=== PATIENT | female | born 1980 | race African-American/Black ===

== ENCOUNTER 2024-10-05 11:51 | Inpatient (IN) | payer MEDICAID, OTHER ==
[~2024-10-05] VITALS: Ht 160 cm; Wt 68.6 kg
--- NOTE | 2024-10-05 12:03 | ED.PDOC ---
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 Allergies: penicillins HPI: Poor Historian. Has not been taking her medicine for quite some time. Was drinking alcohol last night. Denies use of drugs. Denies . REVIEW OF SYSTEMS: CONSTITUTIONAL: Denies acute: fever, diaphoresis, chills, HEAD: Denies acute: photophobia Eyes: Denies acute: Double vision, vision loss, eye pain, eye discharge. EARS: Denies acute: tinnitus, hearing loss, ear discharge, ear pain, THROAT: Denies acute: sore throat, swelling, difficulty swallowing , pain with swallowing, change in voice. NECK: Denies acute: neck pain, neck swelling, stiff neck. HEART: Denies acute : chest pain, LUNGS: Denies acute: SOB, wheezing, cough, hemoptysis ABDOMEN: Denies acute: abdominal pain, Nausea, Vomiting, diarrhea, melena , hematemesis, hematochezia SKIN: Denies acute: rash, redness, lesions, itchiness. EXTREMITIES: Denies acute: calf pain, numbness, tingling, weakness, denies pain in extremity. Denies acute: Low back pain. Neuro: Denies acute: focal neurological deficit, motor or sensory focal neurological deficit, tremors, seizure like activity, confusion, dizziness, change in mental status, loss of bowel or bladder function, cauda equina like symptoms. : Denies acute: dysuria, hematuria, flank pain, increase in urinary frequency. PSYCH: Denies acute: hallucination, suicidal ideation, homicidal ideation. FEMALE: Denies acute: abnormal vaginal bleeding, foul odor, unusual discharge. PHYSICAL EXAM: General: ----mild----acute distress, awake and alert. Head: normocephalic, atraumatic. Neck: supple, trachea is midline, no swelling. Throat: Normal phonation. Eyes:, no erythema, no purulent discharge, no proptosis, no icterus. Heart: regular tachycardia, no significant murmur appreciated. Lungs: no apparent respiratory distress, Able to speak in full sentences. No wheezing, no rhonchi, no crackles. No stridors Clear to auscultation bilaterally. Abdomen: non tender to palpation, non distended, soft, no guarding, no rebound, + bowel sounds. Neuro: Awake, Alert, oriented to name, self, situation, follows commands GCS=15. Speech is normal. Skin: no petechia, no purpura, no cyanosis, non-pale, not jaundice. Lower extremities: --no - Pitting edema no deformity, no focal swelling, no calf TTP. Makes eye contact. moves all four extremities. Face: no apparent facial droop. ED COURSE: DISCLAIMER: This medical document was created using an electronic medical record system with voice recognition software and computerized dictation system. Although this document has been carefully reviewed, there might still be some phonetic and typographical errors. Occasional wrong-word or "sound-alike" substitutions may have occurred due to the inherent limitations of voice recognition software. These areas are purely typographical due to imperfections of the software programs and do not reflect any compromise in the patient's medical care. Please read the chart carefully and recognize, using context, where these substitutions have occurred. Time Seen by MD: 11:56 Reviewed Notes: Allergies Allergies: Coded Allergies: Penicillins (Verified Allergy, Unknown, 10/05/24) Information Source: Patient, Emergency Med Personnel Mode of Arrival: EMS Was a procedure done? Was a procedure done?: No CP Differential Dx Differential Diagnosis: A-fib, A-Flutter, Angina, Anxiety / Panic Attack, Atrial Dysrhythmia, Digoxin Toxicity, Electrolyte Disorder, Heart Failure, Hyperthyroidism, Hypoxia, MAT, PAC's, Pacemaker Malfunction, PSVT, Pulmonary Embolus, PVC's, Renal Failure, Sinus Tachycardia, Torsades De Pointes, V-Fib, V- Tach Differential Diagnosis: Other (DDX include renal disease, thyroid disease, electrolyte abnormality, increased salt intake, medications non-compliance, undiagnosed HTN, Hypertensive crisis, hypertensive urgency., drug toxicity.) X-Ray, Labs, Meds, VS Vital Signs Date Time Temp Pulse Resp B/P (MAP) Pulse Ox O2 Delivery O2 Flow Rate FiO2 10/05/24 14:10 88 154/99 10/05/24 12:41 119 12 99 Room Air* 0 21 10/05/24 12:38 119 12 171/122 (138) 99 10/05/24 12:31 119 171/122 10/05/24 11:56 137 10/05/24 11:54 98.7 121 20 186/141 (156) 98.7 Lab Test 10/05/24 14:04 10/05/24 13:27 10/05/24 12:37 Range/Units Urine Color Light-yellow Yellow Urine Clarity Clear Clear Urine pH 7.0 5.0-9.0 Urine Specific [place] 1.006 1.001-1.035 Urine Protein Negative Negative Urine Ketones Negative Negative Urine Blood Negative Negative /uL Urine Nitrite Negative Negative Urine Bilirubin Negative Negative Urine Urobilinogen Normal Negative mg/dL Urine Leukocyte Esterase Negative Negative /uL Urine RBC 1 0 - 4 /hpf Urine Microscopic WBC 2 0-5 /HPF Urine Squamous Epithelial Cells Few <5 /hpf Urine Bacteria Few H None Seen /hpf Urine Glucose Normal Normal mg/dL Urine Test Negative Negative Urine Opiates Screen Neg NEGATIVE Urine Fentanyl Screen Neg NEGATIVE Urine Barbiturates Screen Neg NEGATIVE Urine Phencyclidine Screen Neg NEGATIVE Urine Amphetamines Screen Neg NEGATIVE Urine Benzodiazepines Screen Neg NEGATIVE Urine Cocaine Screen Neg NEGATIVE Urine Cannabinoids Screen Pos NEGATIVE Troponin I High Sensitivity 5 < 3 L </=34 ng/L White Blood Count 4.1 L 4.4-10.8 10^3/uL Red Blood Count 5.76 H 4.0-5.20 10^6/uL Hemoglobin 15.1 12.2-16.2 g/dL Hematocrit 46.1 H 36.0-46.0 % Mean Corpuscular Volume 79.9 L 80.0-100.0 fL Mean Corpuscular Hemoglobin 26.2 L 28.0-32.0 pg Mean Corpuscular Hemoglobin Concent 32.8 32.0-36.0 g/dL Red Cell Distribution Width 13.1 11.8-14.3 % Platelet Count 238 140-450 10^3/uL Mean Platelet Volume 8.5 6.9-10.8 fL Neutrophils (%) (Auto) 61.6 37.0-80.0 % Lymphocytes (%) (Auto) 29.4 10.0-50.0 % Monocytes (%) (Auto) 6.9 0.0-12.0 % Eosinophils (%) (Auto) 1.3 0.0-7.0 % Basophils (%) (Auto) 0.8 0.0-2.0 % Neutrophils # (Auto) 2.5 1.6-8.6 10 ^3/uL Lymphocytes # (Auto) 1.2 0.4-5.4 10 ^3/uL Monocytes # (Auto) 0.3 0-1.3 10 ^3/uL Eosinophils # (Auto) 0.1 0-0.8 10 ^3/uL Basophils # (Auto) 0 0-0.2 10 ^3/uL Nucleated Red Blood Cells 0.1 % Sodium Level 139 136-145 mmol/L Potassium Level 3.5 3.5-5.1 mmol/L Chloride Level 104 98-107 mmol/L Carbon Dioxide Level 23 20-31 mmol/L Anion Gap 12 5-15 Blood Urea Nitrogen 7 L 9-23 mg/dL Creatinine 0.99 0.550-1.02 mg/dL Glomerular Filtration Rate Calc 73 >90 mL/min BUN/Creatinine Ratio 7.1 L 10.0-20.0 Serum Glucose 89 74-106 mg/dL Lactic Acid Level 2.2 *H 0.4-2.0 mmol/L Calcium Level 10.4 8.7-10.4 mg/dL Magnesium Level 1.9 1.6-2.6 mg/dL Total Bilirubin 0.7 0.2-1.0 mg/dL Aspartate Amino Transferase (AST) 20 13-40 U/L Alanine Aminotransferase (ALT) 16 7-40 U/L Alkaline Phosphatase 67 46-116 U/L B-Type Natriuretic Peptide 5.13 0-100 pg/mL Total Protein 8.8 H 5.7-8.2 g/dL Albumin 5.1 H 3.2-4.8 g/dL Thyroid Stimulating Hormone (TSH) 1.01 0.55-4.78 uIU/mL Plasma/Serum Blood Alcohol < 3.0 <10 mg/dL Current Medications Medications (Trade) Dose Ordered Sig/Joaquin Route Start Time Stop Time Status Last Admin Sodium Chloride 1,000 ml @ 1,000 mls/hr Q1H ONCE IV 10/05/24 12:00 10/05/24 12:59 DC 10/05/24 12:34 Metoprolol Tartrate (Lopressor) 5 mg ONCE ONCE IV 10/05/24 12:00 10/05/24 12:01 DC 10/05/24 12:31 Sodium Chloride 1,000 ml @ 1,000 mls/hr Q1H ONCE IV 10/05/24 14:00 10/05/24 14:59 DC 10/05/24 14:10 [place] [id number] Ph: [phone] DIAGNOSTIC IMAGING Diagnostic Imaging Report : [id number] Signed PATIENT: SETH MULLER ACCT: [id number] UNIT: [id number] : 1980 LOC: OVERFLOW ROOM / BED: [address] [place] [address] AGE / SEX: 44 / F ADM STATUS: ADM IN SERVICE 25 ORDERING PHYSICIAN: JOSE D CLEMENTE DNP PROCEDURE(s): HWOCT - HEAD WITHOUT CONTRAST REASON: acute headache ORDER NUMBER(s): [id number], ACCESSION NUMBER(s): [id number] CT brain without contrast CLINICAL INDICATION: acute headache FINDINGS: The study was performed in a multidetector scanner. This study performed taking axial images from the skull base up to the vertex. Both brain and bone windows are photographed. Dose lowering techniques have been used including automated exposure control and adjustment of mA and/or KV according to patient size. Normal and symmetrical shape and density of brain parenchyma above and below the tentorium is seen. There is no mass, midline shift or hydrocephalus. No intra/extra-axial collections demonstrated. There is no intracranial hemorrhage. The calvarium is intact. IMPRESSION: 1. Normal brain and skull. Computed Tomographic Radiation Dosimetry Report: Total CTDI vol = 54 mGy Total DLP = 752 mGy-cm All CT scans at this medical facility are performed using dose modulation techniques as appropriate to a performed exam including the following: Automated exposure control was utilized; adjustment of the MA and/or KvP according to patient size; and use of iterative reconstruction technique. ATED BY: YOUNG MARISCAL MD DICTATED DATE/TIME: 10/05/241500 SIGNED BY: YOUNG MARISCAL MD SIGNED DATE/TIME: 10/05/24 150 CC: [place] [id number] Ph: [phone] DIAGNOSTIC IMAGING Diagnostic Imaging Report : [id number] Signed PATIENT: SETH MULLER ACCT: [id number] UNIT: [id number] : 1980 LOC: OVERFLOW ROOM / BED: [address] [place] [address] AGE / SEX: 44 / F ADM STATUS: ADM IN SERVICE 1159 ORDERING PHYSICIAN: LUNA KAT DO PROCEDURE(s): CXRP - CHEST PORTABLE REASON: TACHY, HTN ORDER NUMBER(s): [id number], ACCESSION NUMBER(s): [id number] AP portable chest CLINICAL INDICATION: TACHY, HTN FINDINGS: Heart size is normal. No infiltrates or effusions. No bony thoracic abnormalities. IMPRESSION: 1. No acute cardiopulmonary pathology. ATED BY: YOUNG MARISCAL MD DICTATED DATE/TIME: 10/05/241453 SIGNED BY: YOUNG MARISCAL MD SIGNED DATE/TIME: 10/05/241453 CC: Time of 1ST Reevaluation: 18:49 Reevaluation 1ST: Improved Patient Education/Counseling: Diagnosis, Treatment Family Education/Counseling: No Family Present Comments MDM: patient presented with the above HPI.-tachycardia and hypertensive crisis-----workup was initiated. patient was found with the above mentioned diagnosis. the following medications were ordered: please refer to order lists of meds and tests obtained by myself Dr. Kat. Patient ED course and VS have been stabilized. Patient has been reassessed in the ED and remained in a stable condition. Pertinent incidental findings were discussed with the patient and/or family. Patient/family voices understanding and is agreeable with plan. Patient has been observed in the ED adequate length of time to insure improvement/stability. Escalation of care considered: Consideration of escalation to observation or admission Patient was given Lopressor which she was supposed to be on. Patient was given fluid hydration. Vital signs improved. Patient was ADMITTED to the medicine team for further evaluation and treatment of their presentation. Patient was found with slightly elevated D-dimer. The medicine team ordered the CTA angiogram of the chest. It is still pending. All the reports of any imaging studies that were ordered by myself were reviewed by myself. SEPSIS Sepsis Screen Physician Orders Air Conditioning Mechanic (10/05/24 ) Chest Portable (10/05/24 11:59) Electrocardigram (10/05/24 11:59) Electrocardigram (10/05/24 12:59) Electrocardigram (10/05/24 14:59) Vital Signs Date Time Temp Pulse Resp B/P (MAP) Pulse Ox O2 Delivery O2 Flow Rate FiO2 10/05/24 14:10 88 154/99 10/05/24 12:41 119 12 99 Room Air* 0 21 10/05/24 12:38 119 12 171/122 (138) 99 10/05/24 12:31 119 171/122 10/05/24 11:56 137 10/05/24 11:54 98.7 121 20 186/141 (156) 98.7 Laboratory Tests Test 10/05/24 12:37 Lactic Acid Level 2.2 mmol/L (0.4-2.0) *H White Blood Count 4.1 10^3/uL (4.4-10.8) L Medications Medications Dose Ordered Sig/Joaquin Route Start Time Stop Time Status Last Admin Dose Admin Metoprolol Tartrate 5 mg ONCE ONCE IV 10/05/24 12:00 10/05/24 12:01 DC 10/05/24 12:31 Sodium Chloride 1,000 ml @ 1,000 mls/hr Q1H ONCE IV 10/05/24 12:00 10/05/24 12:59 DC 10/05/24 12:34 Sodium Chloride 1,000 ml @ 1,000 mls/hr Q1H ONCE IV 10/05/24 14:00 10/05/24 14:59 DC 10/05/24 14:10 Departure 1 Departure Time of Disposition: 12:45 Impression: Primary Impression: Hypertensive crisis Additional Impressions: Sinus tachycardia Noncompliance with medication regimen Elevated d-dimer Disposition: ADMITTED INPATIENT Admit to: Tele Condition: Guarded Discharged With: Self Critical Care Note Critical Care Time?: Yes (45 min-critical care time only) Heart Score Heart Score: Heart Score Response (Comments) Value History Slightly Suspicious 0 EKG Repolarization Disturb 1 Age <45 0 Risk Factors 1 or 2 risk factors 1 Troponin Normal limit 0 Total 2 I personally scribed for LUNA KAT DO ([email or web address]) on 10/05/24 at 12:03. Electronically submitted by Shyanne El (Pyrolia). I personally scribed for LUNA KAT DO ([email or web address]) on 10/05/24 at 13:34. Electronically submitted by Shyanne El (Pyrolia). I personally scribed for LUNA KAT DO ([email or web address]) on 10/05/24 at 13:59. Electronically submitted by Shyanne El (Pyrolia). I personally scribed for LUNA KAT DO ([email or web address]) on 10/05/24 at 14:06. Electronically submitted by Shyanne El (Pyrolia). I personally scribed for LUNA KAT DO ([email or web address]) on 10/05/24 at 16:26. Electronically submitted by Shyanne El (Pyrolia). I personally scribed for LUNA KAT DO ([email or web address]) on 10/05/24 at 17:57. Electronically submitted by Shyanne El (Pyrolia). LUNA KAT DO Oct 05, 2024 12:03
[2024-10-05] MEDS: METOPROLOL TARTRATE 1MG/1ML-5ML VIAL IV ONE (12:31)
[2024-10-05] MEDS: SODIUM CHLORIDE 0.9% 1,000 ML IV ONE ×2 (12:34→14:10)
[2024-10-05 12:41] VITALS: PULSE 119; RESP 12; O2SAT 99
[2024-10-05 12:57] LABS: Hematocrit 46.1 % (36.0-46.0); Hemoglobin 15.1 g/dL (12.2-16.2); Mean Corpuscular Hemoglobin 26.2 pg (28.0-32.0); Mean Corpuscular Volume 79.9 fL (80.0-100.0); Nucleated Red Blood Cells % 0.1 %
[2024-10-05 13:13] LABS: Alanine Aminotransferase 16 U/L (7-40); Alkaline Phosphatase 67 U/L (46-116); Anion Gap 12 (5-15); BUN/Creatinine Ratio 7.1 (10.0-20.0); Carbon Dioxide 23 mmol/L (20-31); Chloride 104 mmol/L (98-107); Glucose 89 mg/dL (74-106); Magnesium 1.9 mg/dL (1.6-2.6); Potassium 3.5 mmol/L (3.5-5.1); Sodium 139 mmol/L (136-145)
[2024-10-05 13:14] LABS: Bilirubin, Total 0.7 mg/dL (0.2-1.0)
[2024-10-05 13:16] LABS: Albumin 5.1 g/dL (3.2-4.8); Blood Urea Nitrogen 7 mg/dL (9-23); Calcium 10.4 mg/dL (8.7-10.4); Total Protein 8.8 g/dL (5.7-8.2)
[2024-10-05 13:35] LABS: Lactic Acid w/Reflex 2.2 mmol/L (0.4-2.0)
[2024-10-05 14:18] LABS: Urine Protein, UAD Negative (Negative)
[2024-10-05 14:25] LABS: Amphetamine Screen, Urine Neg (NEGATIVE); Barbiturate Scree,Urine Neg (NEGATIVE); Benzodiazephine Screen, Urine Neg (NEGATIVE); Cannabinoid Screen, Urine Pos (NEGATIVE); Cocaine Screen, Urine Neg (NEGATIVE); Opiate Scree,Urine Neg (NEGATIVE); Phencyclidine Screen, Urine Neg (NEGATIVE)
[2024-10-05] MEDS ORDERED: ONDANSETRON HCL 4 MG/2 ML VIAL IV PRN (14:30)
[2024-10-05] MEDS ORDERED: NITROGLYCERIN 0.4 MG SL TAB SL PRN ×2 (14:30)
--- NOTE | 2024-10-05 14:34 | DVHHP2 ---
History of Present Illness Reason for Visit: headache and blurred vision History of Present Illness 44-year-old female with past medical history of hypertension, TIA x2 (last in 2015), and unspecified heart issues, presents with headache, vision changes, dizziness, and a feeling of shakiness. She reports chest discomfort but denies shortness of breath. She acknowledges her blood pressure has been more elevated than usual recently. She also stated she lost her insurance in July 2024 and has since been off her medications, including metoprolol, losartan, and amlodipine. On arrival to the ED, blood pressure was 172/122, and she was treated with IV metoprolol. CBC and CMP were unremarkable except for lactic of 2.2 trop was negative, No imaging had been completed prior to admission, though a CT brain was ordered due to history of TIA and current neurologic symptoms. She was noted to be hemodynamically stable following treatment. Will admit for hypertensive urgency, cardiac and neurologic workup, and reinitiation of antihypertensive therapy. Past Medical History See HPI above Past Surgical History See HPI above Family History Reviewed, non-contributory to the management of this case. Past Social History The patient lives at home, denies smoking, alcohol or illicit drugs abuse. Review of Systems Constitutional: No: Fever, Chills, Sweats, Weakness, Malaise, Other Eyes: Vision change; No: Pain, Conjunctivae inflammation, Eyelid inflammation, Other, Redness ENT: No: Ear pain, Ear discharge, Nose pain, Nose discharge, Nose congestion, Mouth pain, Mouth swelling, Throat pain, Throat swelling, Other Respiratory: No: Cough, Dry, Shortness of breath, SOB with excertion, Wheezing, Hemoptysis, Pleuritic Pain, Sputum, Wheezing, Other Cardiovascular: Chest Pain Gastrointestinal: No: Nausea, Vomiting, Abdominal Pain, Diarrhea, Constipation, Melena, Hematochezia, Other Genitourinary: No Dysuria, No Frequency, No Incontinence, No Hematuria, No Retention, No Other Musculoskeletal: No: other, neck pain, shoulder pain, arm pain, back pain, hand pain, leg pain, foot pain Skin: No: Rash, Lesions, Jaundice, Bruising, Other Neurological: Other (Headache); No: Weakness, Numbness, Incoordination, Change in speech, Confusion, Seizures Allergies: Coded Allergies: Penicillins (Verified Allergy, Unknown, 10/05/24) Exam Vital Signs Vital Signs Date Time Temp Pulse Resp B/P (MAP) Pulse Ox O2 Delivery O2 Flow Rate FiO2 10/05/24 14:10 88 154/99 10/05/24 12:41 12 99 Room Air* 0 21 10/05/24 11:54 98.7 98.7 General Appearance: Alert, Oriented X3, Cooperative, No acute distress HEENT: Atraumatic, PERRLA, EOMI, Mucous membr. moist/pink Respiratory: Clear to auscultation, Normal air movement Cardiovascular: Regular rate, Normal S1, Normal S2, No murmurs Abdominal: Normal bowel sounds, Soft, No tenderness, No hepatospenomegaly, No masses Extremities: No clubbing, No cyanosis, No edema, Normal pulses, No tenderness/swelling Skin: No rashes, No breakdown, No significant lesion Neuro: Normal speech, Strength at 5/5 X4 ext, Normal tone, Sensation intact, Cranial nerves 3-12 NL Psych/Mental Status: Mental status NL, Mood NL Labs/Xrays I reviewed labs, imaging CT scan abdomen pelvis, EKG and all diagnostic studies on this patient from ED records and the medical chart Labs Test 10/05/24 14:04 10/05/24 13:27 10/05/24 12:37 Range/Units Urine Color Light-yellow Yellow Urine Clarity Clear Clear Urine pH 7.0 5.0-9.0 Urine Specific [place] 1.006 1.001-1.035 Urine Protein Negative Negative Urine Ketones Negative Negative Urine Blood Negative Negative /uL Urine Nitrite Negative Negative Urine Bilirubin Negative Negative Urine Urobilinogen Normal Negative mg/dL Urine Leukocyte Esterase Negative Negative /uL Urine RBC 1 0 - 4 /hpf Urine Microscopic WBC 2 0-5 /HPF Urine Squamous Epithelial Cells Few <5 /hpf Urine Bacteria Few H None Seen /hpf Urine Glucose Normal Normal mg/dL Urine Test Negative Negative Urine Opiates Screen Neg NEGATIVE Urine Fentanyl Screen Neg NEGATIVE Urine Barbiturates Screen Neg NEGATIVE Urine Phencyclidine Screen Neg NEGATIVE Urine Amphetamines Screen Neg NEGATIVE Urine Benzodiazepines Screen Neg NEGATIVE Urine Cocaine Screen Neg NEGATIVE Urine Cannabinoids Screen Pos NEGATIVE Troponin I High Sensitivity 5 </=34 ng/L White Blood Count 4.1 L 4.4-10.8 10^3/uL Red Blood Count 5.76 H 4.0-5.20 10^6/uL Hemoglobin 15.1 12.2-16.2 g/dL Hematocrit 46.1 H 36.0-46.0 % Mean Corpuscular Volume 79.9 L 80.0-100.0 fL Mean Corpuscular Hemoglobin 26.2 L 28.0-32.0 pg Mean Corpuscular Hemoglobin Concent 32.8 32.0-36.0 g/dL Red Cell Distribution Width 13.1 11.8-14.3 % Platelet Count 238 140-450 10^3/uL Mean Platelet Volume 8.5 6.9-10.8 fL Neutrophils (%) (Auto) 61.6 37.0-80.0 % Lymphocytes (%) (Auto) 29.4 10.0-50.0 % Monocytes (%) (Auto) 6.9 0.0-12.0 % Eosinophils (%) (Auto) 1.3 0.0-7.0 % Basophils (%) (Auto) 0.8 0.0-2.0 % Neutrophils # (Auto) 2.5 1.6-8.6 10 ^3/uL Lymphocytes # (Auto) 1.2 0.4-5.4 10 ^3/uL Monocytes # (Auto) 0.3 0-1.3 10 ^3/uL Eosinophils # (Auto) 0.1 0-0.8 10 ^3/uL Basophils # (Auto) 0 0-0.2 10 ^3/uL Nucleated Red Blood Cells 0.1 % Sodium Level 139 136-145 mmol/L Potassium Level 3.5 3.5-5.1 mmol/L Chloride Level 104 98-107 mmol/L Carbon Dioxide Level 23 20-31 mmol/L Anion Gap 12 5-15 Blood Urea Nitrogen 7 L 9-23 mg/dL Creatinine 0.99 0.550-1.02 mg/dL Glomerular Filtration Rate Calc 73 >90 mL/min BUN/Creatinine Ratio 7.1 L 10.0-20.0 Serum Glucose 89 74-106 mg/dL Lactic Acid Level 2.2 *H 0.4-2.0 mmol/L Calcium Level 10.4 8.7-10.4 mg/dL Magnesium Level 1.9 1.6-2.6 mg/dL Total Bilirubin 0.7 0.2-1.0 mg/dL Aspartate Amino Transferase (AST) 20 13-40 U/L Alanine Aminotransferase (ALT) 16 7-40 U/L Alkaline Phosphatase 67 46-116 U/L B-Type Natriuretic Peptide 5.13 0-100 pg/mL Total Protein 8.8 H 5.7-8.2 g/dL Albumin 5.1 H 3.2-4.8 g/dL Thyroid Stimulating Hormone (TSH) 1.01 0.55-4.78 uIU/mL Plasma/Serum Blood Alcohol < 3.0 <10 mg/dL SEPSIS Sepsis Screen Date sepsis recognized/suspect: Oct 05, 2024 Time Sepsis recognized/suspect: 1153 Recent Procedure: No On Antibiotic Therapy: No Respiratory Rate >20: No Heart Rate >90: Yes Temp<36 C (96.8 F) or >38.3 C: No SBP <90 or MAP <65 mmHG: No New Acute Mental Status Change: No Is the patient on CPAP, BIPAP,: No Physician Orders Auto Clutch Specialist (10/05/24 ) Chest Portable (10/05/24 11:59) Electrocardigram (10/05/24 11:59) Troponin-I Hs (10/05/24 14:59) Electrocardigram (10/05/24 12:59) Electrocardigram (10/05/24 14:59) Sodium Chloride 0.9% (10/05/24 14:00) Admit (10/05/24 14:26) Code Status (10/05/24 14:26) Vital Signs .PER UNIT PROTOCOL (10/05/24 14:26) Auto Clutch Specialist (10/05/24 14:26) May Elevate Hob ____ Degrees (10/05/24 14:26) Cardiac Diet-2gna,Lofat,Lochol (10/05/24 Dinner) Aspirin Tablet (10/06/24 10:00) Docusate Sodium Capsule (Colace Capsule) (10/06/24 10:00) Pulse Oximeter Check (10/05/24 14:26) Complete Blood Count (10/06/24 04:00) Comprehensive Metabolic Panel (10/06/24 04:00) Prothrombin Time W/ Inr (10/05/24 14:26) Echo 2d Mode Cardiac Dop (10/05/24 14:26) Nitroglycerin Sublingual (Ntrostat Subli (10/05/24 14:30) Ondansetron Hcl (Zofran) (10/05/24 14:30) Lipitor 40mg Once Hi-Intensity (10/05/24 14:30) Troponin-I Hs (10/05/24 14:26) Cardiac Rehabilitation - Outpa (10/05/24 ) Nitroglycerin Sublingual (Ntrostat Subli (10/05/24 14:30) Stat Ekg For Chest Pain (10/05/24 14:26) Notify Md Of Changes From Base (10/05/24 14:26) Tour Director For 24 Hours (10/05/24 14:26) Emergency Dysrhythmia Protocol (10/05/24 14:) Rhythm Strips Once Every Shift (10/05/24 14:26) Oxygen By Nasal Cannula (10/05/24 14:26) Troponin-I Hs (10/05/24 15:26) Troponin-I Hs (10/05/24 17:26) Head Without Contrast (10/05/24 14:26) Test, Urine (10/05/24 14:) NS (10/05/24 14:30) D-Dimer (10/05/24 14:26) Chest Xray 1 View (10/05/24 14:26) Metoprolol Tartrate Tablet (Lopressor Ta (10/05/24 22:00) Amlodipine Tablet (Norvasc Tablet) (10/06/24 10:00) Benazepril Hcl Tablet (Lotensin Tablet) (10/06/24 10:00) Lactic Acid W/ Reflex Order (10/05/24 14:26) Vital Signs Date Time Temp Pulse Resp B/P (MAP) Pulse Ox O2 Delivery O2 Flow Rate FiO2 10/05/24 14:10 88 154/99 10/05/24 12:41 119 12 99 Room Air* 0 21 10/05/24 12:38 119 12 171/122 (138) 99 10/05/24 12:31 119 171/122 10/05/24 11:56 137 10/05/24 11:54 98.7 121 20 186/141 (156) 98.7 Laboratory Tests Test 10/05/24 12:37 Lactic Acid Level 2.2 mmol/L (0.4-2.0) *H White Blood Count 4.1 10^3/uL (4.4-10.8) L Medications Medications Dose Ordered Sig/Joaquin Route Start Time Stop Time Status Last Admin Dose Admin Metoprolol Tartrate 5 mg ONCE ONCE IV 10/05/24 12:00 10/05/24 12:01 DC 10/05/24 12:31 5 MG Sodium Chloride 1,000 ml @ 1,000 mls/hr Q1H ONCE IV 10/05/24 12:00 10/05/24 12:59 DC 10/05/24 12:34 1,000 MLS/HR Sodium Chloride 1,000 ml @ 1,000 mls/hr Q1H ONCE IV 10/05/24 14:00 10/05/24 14:59 10/05/24 14:10 1,000 MLS/HR Assessment/Plan Assessment/Plan 44 yr old female with Hypertensive urgency with neurological symptoms (headache, dizziness, vision changes) and history of TIA. Rule out stroke, ACS, and hypertensive end-organ damage. ASSESSMENT & PLAN acute Hypertensive Urgency BP on arrival 172/122, now improved after IV metoprolol Restart antihypertensive regimen: metoprolol, losartan, amlodipine Monitor BP q4h lipid panel to be ordered by rounding team and EKG no stemi if echo is abnormal can order cards consult acute Headache & Neurologic Symptoms can be from uncontrolled bp but will need to rule out tia CT brain ordered Monitor for worsening neuro symptoms ordered Neuro consult if imaging abnormal or symptoms persist Rule out CVA given history of TIA x2 neuro checks q2h acute Chest Pain No SOB, no diaphoresis Troponins x3 negative EKG and telemetry monitoring Cardiology consult as above ordered cxr fu results acute elevation in lactic ordered ivf for now monitor chronic problems Essential Hypertension History of TIA Unspecified Heart Disease Medication Nonadherence / Uninsured FEN / PPx Fluids: Maintain euvolemia; IV NS Electrolytes: Monitor BMP daily Nutrition: cardiac diet DVT Prophylaxis: SCDs only GI Prophylaxis: Not required Disposition Admit to telemetry for blood pressure management, cardiac and neurologic monitoring, and reinitiation of antihypertensive regimen. Await CT brain and cardiac workup results. Will coordinate with case management regarding outpatient follow-up and medication access. Plan discussed with: Patient My Orders Orders - JOSE D CLEMENTE DNP Procedure Category Date Status Time Admit ADMIT 10/05/24 Verified 14:26 Code Status CODE 10/05/24 Verified 14:26 Vital Signs VINOD 10/05/24 Verified 14:26 Auto Clutch Specialist VINOD 10/05/24 Verified 14:26 May Elevate Hob ____ VINOD 10/05/24 Verified Degrees 14:26 Cardiac DIET 10/05/24 Verified Diet-2gna,Lofat,Lochol Dinner Aspirin Tablet PHA 10/06/24 Verified 10:00 Docusate Sodium PHA 10/06/24 Verified Capsule (Colace 10:00 Pulse Oximeter Check RT 10/05/24 Verified 14:26 Complete Blood Count LAB 10/06/24 Verified 04:00 Comprehensive LAB 10/06/24 Verified Metabolic Panel 04:00 Prothrombin Time W/ LAB 10/05/24 Verified INR 14:26 Echo 2d Mode Cardiac US 10/05/24 Verified DOP 14:26 Nitroglycerin PHA 10/05/24 Verified Sublingual (Ntrostat 14:30 Ondansetron Hcl PHA 10/05/24 Verified (Zofran) 14:30 Lipitor 40mg Once PHA 10/05/24 Verified Hi-Intensity 14:30 Troponin-I Hs LAB 10/05/24 Verified 14:26 Cardiac VINOD 10/05/24 Verified Rehabilitation - Outpa Nitroglycerin [facility] 10/05/24 Verified Sublingual (Ntrostat 14:30 Stat Ekg For Chest [facility] 10/05/24 Verified Pain 14:26 Notify Md Of Changes [facility] 10/05/24 Verified From Base 14:26 Tour Director For [facility] 10/05/24 Verified 24 Hours 14:26 Emergency Dysrhythmia [facility] 10/05/24 Verified Protocol 14:26 Rhythm Strips Once [facility] 10/05/24 Verified Every Shift 14:26 Oxygen By Nasal RT 10/05/24 Verified Cannula 14:26 Troponin-I Hs LAB 10/05/24 Verified 15:26 Troponin-I Hs LAB 10/05/24 Verified 17:[address] 10/05/24 Verified 14:26 Test, Urine LAB 10/05/24 Verified 14:26 NS PHA 10/05/24 Verified 14:30 D-Dimer LAB 10/05/24 Verified 14:26 Chest Xray 1 View XY 10/05/24 Verified 14:26 Metoprolol Tartrate PHA 10/05/24 Verified Tablet (Lopressor Ta 22:00 Amlodipine Tablet PHA 10/06/24 Verified (Norvasc Tablet) 10:00 Benazepril Hcl Tablet PHA 10/06/24 Verified (Lotensin Tablet) 10:00 Lactic Acid W/ Reflex LAB 10/05/24 Verified Order 14:26 Date of Service: Oct 05, 2024 Billing Provider: JOSE D CLEMENTE DNP Common Visit Codes: [id number] INP/OBS CARE (HIGH) JOSE D CLEMENTE DNP Oct 05, 2024 14:34
[2024-10-05] MEDS: ATORVASTATIN 20 MG TAB PO ONE (14:53)
--- NOTE | 2024-10-05 14:56 | DVH ---
AP portable chest CLINICAL INDICATION: TACHY, HTN FINDINGS: Heart size is normal. No infiltrates or effusions. No bony thoracic abnormalities. IMPRESSION: 1. No acute cardiopulmonary pathology.
--- NOTE | 2024-10-05 15:04 | DVH ---
CT brain without contrast CLINICAL INDICATION: acute headache FINDINGS: The study was performed in a multidetector scanner. This study performed taking axial image s from the skull base up to the vertex. Both brain and bone windows are photographed. Dose lowering techniques have been used including automated exposure control and adjustment of mA and /or KV according to patient size. Normal and symmetrical shape and density of brain parenchyma above and below the tentorium is seen. T here is no mass, midline shift or hydrocephalus. No intra/extra-axial collections demonstrated. There is no intracranial hemorrhage. The calvarium is intact. IMPRESSION: 1. Normal brain and skull. Computed Tomographic Radiation Dosimetry Report: Total CTDI vol = 54 mGy Total DLP = 752 mGy-cm All C T scans at this medical facility are performed using dose modulation techniques as appropriate to a p erformed exam including the following: Automated exposure control was utilized; adjustment of the MA and/or KvP according to patient size; and use of iterative reconstruction technique.
[2024-10-05] MEDS: SODIUM CHLORIDE 0.9% 1,000 ML IV SCH (15:30)
[2024-10-05 15:56] LABS: INR 1.08 (0.9-1.15); Prothrombin Time 11.4 sec (9.3-11.8)
[2024-10-05] MEDS: IOHEXOL 350 MG/ML 100ML IJ ONE (19:14)
--- NOTE | 2024-10-05 20:09 | DVHINCON2 ---
Date of service: Oct 05, 2024 Referring Physician Liz Reason for Consultation Acute headache with visual disturbance, history of TIA x2 History of Present Illness is a left-handed female with a history of hypertension, anxiety, TIA, she came to the [facility] on 10/05/24 with a chief complaint of headache, blurry vision, elevated blood pressure. At this time, she is alert and fully oriented, she provided the following history She has a history of hypertension, but for financial reasons, she has been off hypertensive treatment since 07/2024. In the morning on 10/05/24, she woke up not feeling good, she had headache, 9/10, blurry vision, she had a spell of dizziness/spinning sensation when he was standing up. Ringing in the right ear, but she did not have focal weakness numbness. At home, her blood pressure was 200/110, and in the hospital, was high, the initial reading was 186/141 In 2015, she had two TIAs two days apart, in that she could not talk, but was able to laugh, she did not have focal weakness numbness, the patient was seen in the local hospital, but etiology was not clear after MRI and other tests, later her family doctor said that she had two TIAs She has been on aspirin for hypotension since 2011 She reports history of anxiety, and she was seen by a psychiatrist previously Lovenox 1 milligram/kg Q 12 hours subcutaneous was prescribed concerning pulmonary emboli, which has been ruled out by CT angio chest UDS, 10/05/2024: Cannabinoids Plasma alcohol, 10/05/2024: <3 Urinalysis, 10/05/2024: WBC: 2, urine leukocyte esterase: Negative WBC/HB/PLT/MCV, 10/05/2024: 4.1/15.1/238/79.9 CMP, 10/05/2024: Unremarkable Lactic acid, 10/05/2024: 2.2, 1:1 TSH, 10/05/2024: 1.01 CT head, 09/29/2024: Normal brain and skull CTA chest, 10/05/24: No evidence of pulmonary embolism. No acute thoracic finding. Past Medical History Hypertension, TIA x2, anxiety Past Surgical History Family History Hypertension, diabetes, heart disease Social History She denies a history of tobacco smoking, drug or alcohol abuse Allergies: Coded Allergies: Penicillins (Verified Allergy, Unknown, 10/05/24) Current Medications Current Medications Medications (Trade) Dose Ordered Sig/Joaquin Route PRN Reason Start Time Stop Time Status Last Admin Aspirin 81 mg DAILY PO 10/05/24 14:35 10/05/24 14:53 Docusate Sodium (Colace Capsule) 100 mg DAILY PO 10/06/24 10:00 Nitroglycerin (Ntrostat Sublingual) 0.4 mg Q5MINP PRN SL FOR CHEST PAIN 10/05/24 14:30 Ondansetron HCl (Zofran) 4 mg Q4HP PRN IV NAUSEA / VOMITING 10/05/24 14:30 Nitroglycerin (Ntrostat Sublingual) 0.4 mg Q5MINP PRN SL FOR CHEST PAIN 10/05/24 14:30 10/05/24 14:36 DC Sodium Chloride 1,000 ml @ 125 mls/hr Q8H IV 10/05/24 14:30 10/05/24 15:30 Metoprolol Tartrate (Lopressor Tablet) 25 mg BID PO 10/05/24 22:00 Amlodipine Besylate (Norvasc Tablet) 5 mg DAILY PO 10/06/24 10:00 Benazepril HCl (Lotensin Tablet) 5 mg DAILY PO 10/06/24 10:00 Enoxaparin Sodium (Lovenox) 70 mg Q12HR SC 10/05/24 22:00 Review of Systems As above, the other systems are negative Vital Signs Vital Signs Date Time Temp Pulse Resp B/P (MAP) Pulse Ox O2 Delivery O2 Flow Rate FiO2 10/05/24 19:06 83 15 149/113 (125) 97 10/05/24 12:41 Room Air* 0 21 10/05/24 11:54 98.7 98.7 Physical Exam GENERAL EXAM: General: the patient is well developed and nourished. No acute distress. HEENT: Normocephalic, neck is supple, no carotid bruits. No mass. No tenderness to palpation in bilateral temporal head region, and the rest scalp RESPIRATORY: Normal respiratory effort with symmetrical lung expansion. Lungs clear to auscultation. CARDIOVASCULAR: Regular rate and rhythm with no murmurs. S1, S2. ABDOMEN: Soft, nontender, normal bowel sound NEUROLOGICAL: MENTAL STATUS: Awake and alert. Oriented to person, place, time and general circumstances. Able to give personal history. SPEECH, LANGUAGE, HIGHER CORTICAL FUNCTION: no aphasia or dysathria. CRANIAL NERVES: #2: Intact visual pratt to confrontation. The optic discs were sharp.. #3,4,6: Pupils are equal, round and reactive. EOMs full and conjugate. No nystagmus. #5: Facial sensation intact in all three divisions bilaterally. Mandibular strength intact. #7: Facial muscles symmetrical and strength intact. #8: Hearing grossly normal to voice. #9,10: Uvula and soft palate rise in the midline. Swallow and voice are normal. #11: Trapezius and sternomastoid strength intact bilaterally. #12: Tongue midline. No fasciculations or atrophy. SENSATION: Sensation to touch and pinprick is normal. MOTOR: Normal tone in the upper and lower extremity. Normal muscle bulk. No fasciculations. No abnormal movements or posturing. Muscle strength of the major groups in the upper extremities is 5/5. Muscle strength of the major groups in the lower extremities is 5/5. REFLEXES: Deep tendon reflexes are symmetrical. No pathological reflexes. CEREBELLAR/COORDINATION: Finger to nose is normal bilaterally. GAIT/STATION: deferred. Labs/Diagnostic Data Labs Test 10/05/24 15:22 10/05/24 14:04 10/05/24 12:37 Range/Units Prothrombin Time 11.4 9.3-11.8 sec Prothrombin Time INR 1.08 0.9-1.15 D-Dimer, Quantitative 0.69 H 0.0-0.49 mg/L FEU Lactic Acid Level 1.1 0.4-2.0 mmol/L Troponin I High Sensitivity 6 </=34 ng/L Urine Color Light-yellow Yellow Urine Clarity Clear Clear Urine pH 7.0 5.0-9.0 Urine Specific [place] 1.006 1.001-1.035 Urine Protein Negative Negative Urine Ketones Negative Negative Urine Blood Negative Negative /uL Urine Nitrite Negative Negative Urine Bilirubin Negative Negative Urine Urobilinogen Normal Negative mg/dL Urine Leukocyte Esterase Negative Negative /uL Urine RBC 1 0 - 4 /hpf Urine Microscopic WBC 2 0-5 /HPF Urine Squamous Epithelial Cells Few <5 /hpf Urine Bacteria Few H None Seen /hpf Urine Glucose Normal Normal mg/dL Urine Test Negative Negative Urine Opiates Screen Neg NEGATIVE Urine Fentanyl Screen Neg NEGATIVE Urine Barbiturates Screen Neg NEGATIVE Urine Phencyclidine Screen Neg NEGATIVE Urine Amphetamines Screen Neg NEGATIVE Urine Benzodiazepines Screen Neg NEGATIVE Urine Cocaine Screen Neg NEGATIVE Urine Cannabinoids Screen Pos NEGATIVE White Blood Count 4.1 L 4.4-10.8 10^3/uL Red Blood Count 5.76 H 4.0-5.20 10^6/uL Hemoglobin 15.1 12.2-16.2 g/dL Hematocrit 46.1 H 36.0-46.0 % Mean Corpuscular Volume 79.9 L 80.0-100.0 fL Mean Corpuscular Hemoglobin 26.2 L 28.0-32.0 pg Mean Corpuscular Hemoglobin Concent 32.8 32.0-36.0 g/dL Red Cell Distribution Width 13.1 11.8-14.3 % Platelet Count 238 140-450 10^3/uL Mean Platelet Volume 8.5 6.9-10.8 fL Neutrophils (%) (Auto) 61.6 37.0-80.0 % Lymphocytes (%) (Auto) 29.4 10.0-50.0 % Monocytes (%) (Auto) 6.9 0.0-12.0 % Eosinophils (%) (Auto) 1.3 0.0-7.0 % Basophils (%) (Auto) 0.8 0.0-2.0 % Neutrophils # (Auto) 2.5 1.6-8.6 10 ^3/uL Lymphocytes # (Auto) 1.2 0.4-5.4 10 ^3/uL Monocytes # (Auto) 0.3 0-1.3 10 ^3/uL Eosinophils # (Auto) 0.1 0-0.8 10 ^3/uL Basophils # (Auto) 0 0-0.2 10 ^3/uL Nucleated Red Blood Cells 0.1 % Sodium Level 139 136-145 mmol/L Potassium Level 3.5 3.5-5.1 mmol/L Chloride Level 104 98-107 mmol/L Carbon Dioxide Level 23 20-31 mmol/L Anion Gap 12 5-15 Blood Urea Nitrogen 7 L 9-23 mg/dL Creatinine 0.99 0.550-1.02 mg/dL Glomerular Filtration Rate Calc 73 >90 mL/min BUN/Creatinine Ratio 7.1 L 10.0-20.0 Serum Glucose 89 74-106 mg/dL Calcium Level 10.4 8.7-10.4 mg/dL Magnesium Level 1.9 1.6-2.6 mg/dL Total Bilirubin 0.7 0.2-1.0 mg/dL Aspartate Amino Transferase (AST) 20 13-40 U/L Alanine Aminotransferase (ALT) 16 7-40 U/L Alkaline Phosphatase 67 46-116 U/L B-Type Natriuretic Peptide 5.13 0-100 pg/mL Total Protein 8.8 H 5.7-8.2 g/dL Albumin 5.1 H 3.2-4.8 g/dL Thyroid Stimulating Hormone (TSH) 1.01 0.55-4.78 uIU/mL Plasma/Serum Blood Alcohol < 3.0 <10 mg/dL Assessment Headache, blurry vision, vertigo, elevated blood pressure, the patient's likes has hypertension urgency, hypertension encephalopathy Posterior reversible encephalopathy syndrome Uncontrolled hypertension Reports TIA x 2 in 2015 Plan/Recommendation Monitoring Supportive treatment Telemetry Lipitor profile MRI head Blood pressure control Aspirin 81 mg daily Lipitor 10 mg daily Ativan p.r.n. for anxiety D/C Lovenox 1 milligram/kg subQ Q 2 hours DVT prophylaxis Progress: Poor This medical document was created using an electronic medical record system with [employer] computerized dictation system. Although this document has been carefully reviewed, there may still be some phonetic and typographical errors. These areas are purely typographical due to imperfections of the software programs, and do not reflect any compromise in the patient's medical care. Plan discussed with: Patient, Other LINCOLN DEAL MD Oct 05, 2024 20:09
--- NOTE | 2024-10-05 20:12 | DVH ---
CTA Chest with intravenous contrast INDICATION: eval for pe COMPARISON: None TECHNIQUE: Multidetector spiral CTA of the chest was performed of the chest with intravenous contrast . PULMONARY ANGIOGRAPHY PROTOCOL was utilized using a bolus-tracking technique centered on the main p ulmonary artery. Axial, coronal and sagittal multiplanar and MIP reformats were performed. Radiation Dose : 1. Chest: CTDI volume is 11.84 mGy. Dose-length product is 191.33 mGy*cm The dose indicators for CT are the volume Computed Tomography (CT) Dose Index (CTDIvol) and the Dose Length Product (DLP), and are measured in units of mGy and mGy-cm, respectively. These indicators are not patient dose, but values generated from the CT scanner acquisition factors. The report includes radiation exposure data for exposures received during this examination. Findings: Pulmonary artery: No evidence of pulmonary embolism. Lower neck: Unremarkable. Lungs: No abnormality demonstrated. Pleura: No pleural effusion or pneumothorax. Heart: Normal heart size. No pericardial effusion. Thoracic aorta: No abnormality demonstrated. Mediastinum / Lymph Nodes: No abnormality demonstrated. Musculoskeletal: No abnormality demonstrated. Soft tissues: Unremarkable. Upper abdomen: Unremarkable. IMPRESSION: No evidence of pulmonary embolism. No acute thoracic finding.
[2024-10-05 20:59] VITALS: BP 152/107; PULSE 79; RESP 12; TEMP 99.3; O2SAT 96
[2024-10-05] MEDS: METOPROLOL TARTRATE 25 MG TAB PO SCH (21:03)
[2024-10-05] MEDS: ENOXAPARIN SOD 100 MG/1 ML SYRINGE SC SCH (21:03)
[2024-10-05 22:45] VITALS: PULSE 74; RESP 17; O2SAT 98
[2024-10-05] MEDS: ATORVASTATIN 20 MG TAB PO SCH (23:27)
[2024-10-05] MEDS ORDERED: ASPI-378 PO (23:49)
[2024-10-06] VITALS (8 sets, daily range): BP systolic 107–165; BP diastolic 69–119; PULSE 72–89; RESP 16–18; TEMP 97–98.6; O2SAT 95–99
[2024-10-06] MEDS: LORazepam 0.5 MG TAB PO PRN (00:20)
[2024-10-06] MEDS: hydrALAZINE HCL 20 MG/ML VL IV PRN (01:05)
[2024-10-06] MEDS: ACETAMINOPHEN 325 MG TAB PO PRN (04:15)
[2024-10-06 07:13] LABS: Hematocrit 40.8 % (36.0-46.0); Hemoglobin 13.5 g/dL (12.2-16.2); Mean Corpuscular Hemoglobin 26.5 pg (28.0-32.0); Mean Corpuscular Volume 80.1 fL (80.0-100.0); Nucleated Red Blood Cells % 0.3 %
[2024-10-06 07:27] LABS: Alanine Aminotransferase 12 U/L (7-40); Albumin 4.1 g/dL (3.2-4.8); Alkaline Phosphatase 53 U/L (46-116); Anion Gap 11 (5-15); BUN/Creatinine Ratio 10.1 (10.0-20.0); Blood Urea Nitrogen 8 mg/dL (9-23); Calcium 9.6 mg/dL (8.7-10.4); Carbon Dioxide 21 mmol/L (20-31); Chloride 108 mmol/L (98-107); Glucose 78 mg/dL (74-106); Potassium 3.5 mmol/L (3.5-5.1); Sodium 140 mmol/L (136-145); Total Protein 7.0 g/dL (5.7-8.2)
[2024-10-06 07:28] LABS: Bilirubin, Total 1.0 mg/dL (0.2-1.0)
[2024-10-06] MEDS: LORazepam 2MG/ML-1ML VIAL IV PRN (08:26)
[2024-10-06] MEDS: DOCUSATE SOD 100 MG CAP PO SCH (10:00)
[2024-10-06] MEDS: ENOXAPARIN SOD 30 MG/0.3 ML SYRINGE SC SCH (10:00)
[2024-10-06 10:18] LABS: Triglycerides 98 mg/dL (< 150)
[2024-10-06 10:20] LABS: Cholesterol 190 mg/dL (< 200)
[2024-10-06 10:21] LABS: HDL Cholesterol 66 mg/dL (40-59)
[2024-10-06] MEDS: METOPROLOL TARTRATE 50 MG TAB PO SCH (12:00)
[2024-10-06] MEDS: BENAZEPRIL HCL 10 MG TAB PO SCH (12:01)
--- NOTE | 2024-10-06 14:21 | DVHINCON2 ---
Date Seen: Oct 06, 2024 Referring Physician ERIBERTO Servin Reason for Consultation Acute CP History of Present Illness 44-year-old female presents to the emergency department via EMS with complaint of headache and blurry vision that began upon waking up yesterday morning. In the ED, she was found to be in sinus tachycardia with a heart rate of 137bpm and severely elevated blood pressure. She also reported acute chest pain, prompting cardiology consultation; however, on assessment, she denied active chest pain or shortness of breath. The patient reports recent Cardiology follow-up in [place] including is test stress in March 2023 with normal findings. Serial troponin were negative and repeat 12 lead EKG revealed normal sinus rhythm. Blood pressure is now well controlled on metoprolol tartrate 50 mg b.i.d. and nifedipine 60 ER daily. Significant past medical history includes hypertension, TIA x2, headaches, anxiety, and marijuana use. Past Medical History As stated in HPI Past Surgical History Denies Family History: Patient reports no known family medical history. Family History Reviewed, non-contributory to the management of this case. Social History Denies tobacco use admits to marijuana use Allergies: Coded Allergies: Penicillins (Verified Allergy, Unknown, 10/05/24) Home Meds Reported Medications Aspirin (DARINEL ASPIRIN EC LOW DOSE) 81 Mg Tab, 1 TAB PO DAILY, #30 TAB 3 Refills 10/05/24 Current Medications Current Medications Medications (Trade) Dose Ordered Sig/Joaquin Route PRN Reason Start Time Stop Time Status Last Admin Aspirin 81 mg DAILY PO 10/05/24 14:35 10/06/24 12:00 Docusate Sodium (Colace Capsule) 100 mg DAILY PO 10/06/24 10:00 Nitroglycerin (Ntrostat Sublingual) 0.4 mg Q5MINP PRN SL FOR CHEST PAIN 10/05/24 14:30 Ondansetron HCl (Zofran) 4 mg Q4HP PRN IV NAUSEA / VOMITING 10/05/24 14:30 Nitroglycerin (Ntrostat Sublingual) 0.4 mg Q5MINP PRN SL FOR CHEST PAIN 10/05/24 14:30 10/05/24 14:36 DC Sodium Chloride 1,000 ml @ 125 mls/hr Q8H IV 10/05/24 14:30 10/06/24 12:06 DC 10/05/24 23:16 Metoprolol Tartrate (Lopressor Tablet) 25 mg BID PO 10/05/24 22:00 10/06/24 00:46 DC 10/05/24 21:03 Amlodipine Besylate (Norvasc Tablet) 5 mg DAILY PO 10/06/24 10:00 10/06/24 10:38 DC Benazepril HCl (Lotensin Tablet) 5 mg DAILY PO 10/06/24 10:00 10/06/24 12:01 Enoxaparin Sodium (Lovenox) 70 mg Q12HR SC 10/05/24 22:00 10/05/24 21:08 DC 10/05/24 21:03 Atorvastatin Calcium (Lipitor) 20 mg HS PO 10/05/24 22:00 10/05/24 23:27 Lorazepam (Ativan Inj) 1 mg ONCE PRN IV MRI 10/05/24 21:00 10/06/24 08:26 Lorazepam (Ativan Tablet) 0.5 mg Q8HP PRN PO ANXIETY 10/05/24 21:00 10/06/24 00:20 Enoxaparin Sodium (Lovenox) 30 mg DAILY SC 10/06/24 10:00 Hydralazine HCl (Apresoline Injection) 10 mg Q6HP PRN IV SBP>150 10/06/24 00:45 10/06/24 01:05 Metoprolol Tartrate (Lopressor Tablet) 50 mg BID PO 10/06/24 10:00 10/06/24 12:00 Acetaminophen (Tylenol Tablet) 650 mg Q6HP PRN PO MILD PAIN (1-3 PAIN SCALE) 10/06/24 04:15 10/06/24 04:15 Nifedipine (Procardia Xl (Time-Release)) 60 mg DAILY PO 10/06/24 11:00 10/06/24 12:03 Review of Systems Constitutional: No symptom reported Ears, Nose, & Throat: No symptom reported Eyes: No symptom reported Neurological: No symptoms reported Pulmonary/Respiratory: No symptom reported Cardiovascular: Chest pain. Gastrointestinal: No symptom reported Genitourinary: No symptom reported Musculoskeletal: No symptom reported Skin: No symptom reported Psychiatric: No symptom reported Endocrine: No symptom reported Hemotologic/Lymphatic: No symptom reported Vital Signs Vital Signs Date Time Temp Pulse Resp B/P (MAP) Pulse Ox O2 Delivery O2 Flow Rate FiO2 10/06/24 12:03 126/89 10/06/24 12:00 79 10/06/24 09:30 98.3 17 95 98.3 10/05/24 22:45 Room Air* 0 21 Physical Exam INITIAL VITAL SIGNS: Reviewed by me GENERAL: Alert and interactive. No acute distress. HEAD: Head is normocephalic and atraumatic. EYES: EOMI, PERRL. No scleral icterus. No conjunctival injection. ENT: Moist mucous membranes. NECK: Supple, No masses, Full range of motion. RESPIRATORY: No tachypnea. Clear breath sounds bilaterally. No wheezing, rales, rhonchi. CV: Tachycardic initially, currently regular rate and rhythm. No murmurs. No edema GI/: Active bowel sounds, soft, nondistended, nontender. No guarding. No rebound. No masses. No CVA tenderness. INTEGUMENTARY: Warm and dry. No obvious rashes. NEUROLOGIC: Alert and oriented. Face is symmetric. Speech is normal. Moves all extremities equally. Labs/Diagnostic Data Labs Test 10/06/24 05:00 10/05/24 15:22 10/05/24 14:04 10/05/24 12:37 Range/Units White Blood Count 3.9 L 4.4-10.8 10^3/uL Red Blood Count 5.09 4.0-5.20 10^6/uL Hemoglobin 13.5 12.2-16.2 g/dL Hematocrit 40.8 # 36.0-46.0 % Mean Corpuscular Volume 80.1 80.0-100.0 fL Mean Corpuscular Hemoglobin 26.5 L 28.0-32.0 pg Mean Corpuscular Hemoglobin Concent 33.0 32.0-36.0 g/dL Red Cell Distribution Width 13.6 11.8-14.3 % Platelet Count 229 140-450 10^3/uL Mean Platelet Volume 8.7 6.9-10.8 fL Neutrophils (%) (Auto) 45.2 37.0-80.0 % Lymphocytes (%) (Auto) 42.5 10.0-50.0 % Monocytes (%) (Auto) 9.9 0.0-12.0 % Eosinophils (%) (Auto) 1.5 0.0-7.0 % Basophils (%) (Auto) 0.9 0.0-2.0 % Neutrophils # (Auto) 1.8 1.6-8.6 10 ^3/uL Lymphocytes # (Auto) 1.7 0.4-5.4 10 ^3/uL Monocytes # (Auto) 0.4 0-1.3 10 ^3/uL Eosinophils # (Auto) 0.1 0-0.8 10 ^3/uL Basophils # (Auto) 0 0-0.2 10 ^3/uL Nucleated Red Blood Cells 0.3 % Sodium Level 140 136-145 mmol/L Potassium Level 3.5 3.5-5.1 mmol/L Chloride Level 108 H 98-107 mmol/L Carbon Dioxide Level 21 20-31 mmol/L Anion Gap 11 5-15 Blood Urea Nitrogen 8 L 9-23 mg/dL Creatinine 0.79 0.550-1.02 mg/dL Glomerular Filtration Rate Calc 95 >90 mL/min BUN/Creatinine Ratio 10.1 10.0-20.0 Serum Glucose 78 74-106 mg/dL Calcium Level 9.6 8.7-10.4 mg/dL Total Bilirubin 1.0 0.2-1.0 mg/dL Aspartate Amino Transferase (AST) 16 13-40 U/L Alanine Aminotransferase (ALT) 12 7-40 U/L Alkaline Phosphatase 53 46-116 U/L Troponin I High Sensitivity 3 L </=34 ng/L Total Protein 7.0 5.7-8.2 g/dL Albumin 4.1 3.2-4.8 g/dL Triglycerides Level 98 < 150 mg/dL Cholesterol Level 190 < 200 mg/dL LDL Cholesterol 112 H < 100 mg/dL HDL Cholesterol 66 H 40-59 mg/dL Thyroid Stimulating Hormone (TSH) 1.51 0.55-4.78 uIU/mL Prothrombin Time 11.4 9.3-11.8 sec Prothrombin Time INR 1.08 0.9-1.15 D-Dimer, Quantitative 0.69 H 0.0-0.49 mg/L FEU Lactic Acid Level 1.1 0.4-2.0 mmol/L Urine Color Light-yellow Yellow Urine Clarity Clear Clear Urine pH 7.0 5.0-9.0 Urine Specific [place] 1.006 1.001-1.035 Urine Protein Negative Negative Urine Ketones Negative Negative Urine Blood Negative Negative /uL Urine Nitrite Negative Negative Urine Bilirubin Negative Negative Urine Urobilinogen Normal Negative mg/dL Urine Leukocyte Esterase Negative Negative /uL Urine RBC 1 0 - 4 /hpf Urine Microscopic WBC 2 0-5 /HPF Urine Squamous Epithelial Cells Few <5 /hpf Urine Bacteria Few H None Seen /hpf Urine Glucose Normal Normal mg/dL Urine Test Negative Negative Urine Opiates Screen Neg NEGATIVE Urine Fentanyl Screen Neg NEGATIVE Urine Barbiturates Screen Neg NEGATIVE Urine Phencyclidine Screen Neg NEGATIVE Urine Amphetamines Screen Neg NEGATIVE Urine Benzodiazepines Screen Neg NEGATIVE Urine Cocaine Screen Neg NEGATIVE Urine Cannabinoids Screen Pos NEGATIVE Magnesium Level 1.9 1.6-2.6 mg/dL B-Type Natriuretic Peptide 5.13 0-100 pg/mL Plasma/Serum Blood Alcohol < 3.0 <10 mg/dL PROCEDURE(s): CXRP - CHEST PORTABLE REASON: TACHY, HTN ORDER NUMBER(s): [id number], ACCESSION NUMBER(s): [id number] AP portable chest CLINICAL INDICATION: TACHY, HTN FINDINGS: Heart size is normal. No infiltrates or effusions. No bony thoracic abnormalities. IMPRESSION: 1. No acute cardiopulmonary pathology. Assessment Sinus tachycardia--now sinus rhythm at a controlled rate * Likely secondary to elevated blood pressure and anxiety Hypertensive urgency, now resolved Headaches, unspecified Hyperlipidemia hx TIA Anxiety Plan/Recommendation (Dr. Khan ): Chest pain likely secondary to uncontrolled blood pressure and/or anxiety. The patient initially complaint of chest pain, which have since resolved. Serial troponins were negative, and EKG showed sinus rhythm with no ischemic changes. Given her recent normal stress in March 2023 and an absence of current chest pain, there is no indication of acute coronary syndrome at this time. Her heart rate and blood pressure are now well controlled on metoprolol and nifedipine. We will can continue this medication and monitor vital signs during her inpatient course. In an event of unremarkable echocardiogram, there is no immediate need for further cardiac workup. 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 If symptoms persist, ambulatory rhythm monitoring may be considered. Patient has been advised on strict medication adherence lifestyle modification including cessation of cannabis use. Repleted magnesium. Continue to monitor electrolytes and replace as needed. Rest of plan per primary team. This medical document was created using an electronic medical record system with voice recognition software and computerized dictation system. Although this document has been carefully reviewed, there might still be some phonetic and typographical errors. Occasional wrong-word or ``sound-alike substitutions may have occurred due to the inherent limitations of voice recognition software. These areas are purely typographical due to imperfections of the software programs and do not reflect any compromise in the patient's medical care. Please read the chart carefully and recognize, using context, where these substitutions have occurred. Plan discussed with: Patient Plan discussed with: Patient NYHA Physical activity limitations: NA Date of Service: Oct 06, 2024 Billing Provider: EUGENIO KHAN Sr., MD Cardiology Common Codes: CONSULT ONLY Cardiology Consultation Codes: [id number] CONSULT <45MIN NETTE ROQUE GRANITE POLISHER Oct 06, 2024 14:21
--- NOTE | 2024-10-06 14:36 | DVHPNRES ---
Progress Note Date Seen: Oct 06, 2024 Resident Creating Document: LUIS PRIETO RESIDENT Has the PT tested + for MRSA If YES, has PT been informed?: No Medical Necessity Reason Pt with a Central, PICC or Fol: No Subjective Review of Systems Patient is a 43-year-old female with past medical history of hypertension since 1995, an unspecified heart issue in 2011, anxiety, and 2 TIAs in 2016, who presented to the ED with chief complaint of headache and high blood pressure. She states she awoke yesterday with a generalized pulsating headache, intensity 9/10, for which she took an aspirin with no relief. She states this was associated with blurry vision, tinnitus, nausea, and labored breathing. Patient states that she is currently between insurances and has not been taking her blood pressure medications (benzapril, amlodipine, and losartan), but has been monitoring her BP at home with average reading of 157/75 mmHg. She checked her blood pressure at home and states it was 180/100, which prompted her to seek medical care. She denied vomiting, palpitations, chest pain, arm pain, or any other symptoms. On evaluation in the ED, she was tachycardic and her blood pressure was 172/122, for which she was started on IV metoprolol. Initial labs showed WBCs 4.1, Hb 15.1, HCT 46.1, PLT 238, Sodium 139, Potassium 3.5, Creatine 0.99, lactic acid 2.2, and troponins negative. UDS positive for cannabis Chest Xray shows no acute signs of cardiopulmonary disease. Head CT shows normal brain and skull. She was admitted for further work up and monitoring. Surgical: 4 prior c-sections Family: Father from CHF at 49 years old Allergies: Penicillin (States that as child she was given penicillin and had a bad reaction, is unsure what the reaction). Social: Refers habitual use of marijuana, denies other drugs use. Patient seen at bedside. Patient states she has intermittent headaches since admission, they are less intense (6/10), and have responded to acetaminophen. Otherwise, she states she feels well, denies tinnitus, blurry vision, shortness of breath, chest pain, palpitations, epistaxis and other symptoms. Her home medications were reconciled, however, that patient has remained consistently hypertensive. Follow up labs are significant for WBCs 3.9, lactic acid has normalized, other labs are within range. Due to suspicion of possible PE, CT angio was ordered which showed no evidence of pulmonary embolism and no acute thoracic finding. Due to suspicion of possible secondary hypertension and family history of heart disease, Echocardiogram has been ordered. Additionally, thyroid studies and renal imaging has been ordered. We will continue to monitor. Review of Systems: Constitutional: Denies weight loss, fever and chills. HEENT: Denies changes in vision and hearing. Respiratory: Denies shortness of breath and cough Cardiovascular: Denies chest discomfort or palpitations GI: Denies abdominal distention, abdominal pain, diarrhea : Denies dysuria and urinary frequency. Musculoskeletal: Refers localized back pain Skin: Denies rash and pruritus. Neurological: Refers headache, denies dizziness, vision, or hearing problems Objective vital signs Vital Sign Date Time Temp Pulse Resp B/P (MAP) Pulse Ox O2 Delivery O2 Flow Rate FiO2 10/06/24 12:03 126/89 10/06/24 12:00 79 10/06/24 09:30 98.3 17 95 98.3 10/05/24 22:45 Room Air* 0 21 Total Intake and Output 10/05/24 10/05/24 10/06/24 15:00 23:00 07:00 Intake Total 1000 ml 1375 ml 800 ml Balance 1000 ml 1375 ml 800 ml medications Current Medications Medications Dose Ordered Sig/Joaquin Route Start Time Stop Time Status Last Admin Dose Admin Aspirin 81 mg DAILY PO 10/05/24 14:35 10/06/24 12:00 81 MG Docusate Sodium 100 mg DAILY PO 10/06/24 10:00 Nitroglycerin 0.4 mg Q5MINP PRN SL 10/05/24 14:30 Ondansetron HCl 4 mg Q4HP PRN IV 10/05/24 14:30 Benazepril HCl 5 mg DAILY PO 10/06/24 10:00 10/06/24 12:01 5 MG Atorvastatin Calcium 20 mg HS PO 10/05/24 22:00 10/05/24 23:27 20 MG Lorazepam 1 mg ONCE PRN IV 10/05/24 21:00 10/06/24 08:26 1 MG Lorazepam 0.5 mg Q8HP PRN PO 10/05/24 21:00 10/06/24 00:20 0.5 MG Enoxaparin Sodium 30 mg DAILY SC 10/06/24 10:00 Hydralazine HCl 10 mg Q6HP PRN IV 10/06/24 00:45 10/06/24 01:05 10 MG Metoprolol Tartrate 50 mg BID PO 10/06/24 10:00 10/06/24 12:00 50 MG Acetaminophen 650 mg Q6HP PRN PO 10/06/24 04:15 10/06/24 04:15 650 MG Nifedipine 60 mg DAILY PO 10/06/24 11:00 10/06/24 12:03 60 MG Examination Physical Exam: General: The patient alert and oriented in person place and time. Patient following commands HEENT: Normocephalic, atraumatic, normoreactive pupils, excessive blinking, EOM intact, pink conjunctiva, dry mucous membrane Respiratory/pulmonary: Clear lungs bilaterally, vesicular murmurs present in almost all lung pratt, no associated crackles or wheezes. Cardiovascular: Normal RRR, normal S1 and S2, no accessory sounds Abdomen: Vertical linear hypopigmented striae covering inferior abdomen, Abdomen nondistended, Normal bowel sounds, tympanic to percussion, soft, no pain to palpation in any of the abdominal quadrants, no palpable masses. Extremities: No deformities, there is no peripheral edema present at the lower extremities, normal pulses. Skin: No rashes or pruritus Neurological: Intact cranial nerves with no focal neurologic deficits laboratory and microbiology Laboratory Tests 10/06/24 05:00 Test 10/06/24 05:00 Range/Units Serum Glucose 78 74-106 mg/dL Problem List/Assessment/Plan Problem List/Assessment/Plan Assessment and Plan: Hypertensive Urgency Lactic acidosis, possibly due to above -Metoprolol 5 mg IV once -Hydralazine 10 mg IV q6 PRN if SBP > 150 -IV Fluids Hypertension, ?secondary -TSH: 1.51 -Renal duplex pending -Echocardiogram pending -Benzapril 5 mg PO Daily -Metoprolol tartrate 50 mg PO BID -Nifedipine 60 mg PO daily Headache, secondary to above -Acetaminophen 650 mg q6 PO PRN Acute TIA, ruled out -Head CT: Normal brain and skull. -Brain MRI: PE, ruled out -D-dimer 0.69 -CT angio: No evidence of pulmonary embolism and no acute intrathoracic findings History of Anxiety -Ativan 0.5 mg PO q 8 PRN History of TIA -Aspirin 81 mg PO Daily Cannabis use -UDS: + cannabis -Counseled on cessation of substance use for over 15 minutes. Case discussed with Dr. Gonzalez. Goals of care discussed with the patient for over 25 minutes. She states she understands and agrees. Plan discussed with: Patient My Orders My Orders Orders - LUIS PRIETO RESIDENT Procedure Category Date Status Time Renal Artery Comp US 10/06/24 Taken 10:54 Date of Service: Oct 06, 2024 Billing Provider: GRACIE GONZALEZ DO Common Visit Codes: [id number] INP/OBS CARE(HIGH) LUIS PRIETO RESIDENT Oct 06, 2024 14:36 GRACIE GONZALEZ DO Oct 07, 2024 08:27
--- NOTE | 2024-10-06 14:40 | DVH ---
EXAM: MRI BRAIN HEAD WO CONTRAST HISTORY: PRES TECHNIQUE: Multiplanar and multisequence MR imaging of the head was performed. COMPARISON: CT head from 10/05/2024 FINDINGS: The ventricles and subarachnoid spaces are normal in size and configuration. Brain parenchyma is norm al in signal. There is no midline shift or mass effect. The vascular flow-voids are unremarkable. Dif fusion weighted imaging is not indicative of acute or recent infarct. Left mastoid air cell effusion. Mild mucosal thickening of the paranasal sinuses greatest in the bilateral maxillary sinuses. IMPRESSION: No acute or recent infarct. No acute abnormality.
--- NOTE | 2024-10-06 14:43 | DVH ---
EXAM DESCRIPTION: RENAL DUPLEX ULTRASOUND CLINICAL HISTORY: Possible secondary HTN COMPARISON: None TECHNIQUE: Multiplanar ultrasound examination of the kidneys, abdominal aorta, and bilateral renal arteries was performed. FINDINGS: Limited evaluation with poor visualization of the bilateral arteries. The right kidney measures 10.8 cm. No renal calculus. No hydronephrosis.. No solid renal masses. The left kidney measures 10.2 cm. No renal calculus. No hydronephrosis.. No solid renal masses. The echogenicity of the kidneys is within normal limits. Normal flow velocities in the poorly visualized bilateral renal arteries without evidence of stenosis or occlusion. The intraparenchymal renal vessels bilaterally are not well evaluated due to large shikha w velocity scale. The abdominal aorta measures 1.6 cm. Peak systolic velocity at the abdominal aorta is 119 cm/s IMPRESSION: Limited evaluation with poor visualization/evaluation of the bilateral renal arteries. No definite ev idence of renal artery stenosis. If there is clinical concern, consider further evaluation CT angiogr am abdomen.
--- NOTE | 2024-10-06 17:08 | DVHSR ---
APPROVED REPORT EXAM: Two-dimensional and M-mode echocardiogram with Doppler and color Doppler. Blood Pressure: 134/92 mmHg INDICATION Chest Pain RISK FACTORS Height: 63, Weight: 144 DIMENSIONS LVDd3.9 (3.8-5.7cm)LA (2D)3.7 (1.9-4.0cm)Aortic Root3.2 (2.0-3.7cm) LVDs2.7 (2.5-4.0cm)LA (MM) (1.9-4.0cm)Aortic Cusp Exc1.6 (1.5-2.0cm) EF (%) 60.0 (55-70%)Rt. Atrium3.5 (1.9-4.0cm)Asc. Aorta cm IVSd1.4 (0.7-1.1cm)RV (D) (1.8-2.4cm) PWd1.4 (0.7-1.1cm) Mitral Valve MitralMitral Stenosis E wave0.66m/sMV Mean GR.mmHg A wave0.91m/sMV Peak GR.mmHg E/A ratio0.72D MVAcm2 DECEL [id number] 1/2 [id number] IVRTmsDop MVA5.05cm2 Aortic Valve Aortic ValveAortic Stenosis V10.93m/Samina Mean GR.4mmHg V21.29m/Samina Peak GR.7mmHg LVOT Diameter2.0 (1.8-2.4cm)Doppler AVA2.26cm2 Pulmonic Valve V21.09m/s Other Information Technically limited study due to body habitus. Conclusion Sinus rhythm. Concentric LVH. Valves are normal. EF of 50% with normal RV function. Doppler reveals no significant regurgitant jets. No pericardial effusion masses or vegetations.
[2024-10-06] MEDS: MAGNESIUM SULFATE 1GM/100ML 100 ML IV ONE (17:55)
[2024-10-07 01:00] VITALS: BP 105/70; PULSE 73; RESP 12; TEMP 98.3; O2SAT 97
[2024-10-07 05:00] VITALS: BP 114/62; PULSE 75; RESP 17; TEMP 97.8; O2SAT 99
[2024-10-07 06:34] LABS: Nucleated Red Blood Cells % 0.4 %
[2024-10-07 06:37] LABS: Hematocrit 44.5 % (36.0-46.0); Hemoglobin 15.0 g/dL (12.2-16.2); Mean Corpuscular Hemoglobin 27.1 pg (28.0-32.0); Mean Corpuscular Volume 80.0 fL (80.0-100.0)
[2024-10-07 06:46] LABS: Calcium 9.9 mg/dL (8.7-10.4); Chloride 105 mmol/L (98-107); Potassium 4.1 mmol/L (3.5-5.1); Sodium 139 mmol/L (136-145)
[2024-10-07 06:47] LABS: Anion Gap 9 (5-15); Carbon Dioxide 25 mmol/L (20-31)
[2024-10-07 06:52] LABS: BUN/Creatinine Ratio 13.7 (10.0-20.0); Blood Urea Nitrogen 13 mg/dL (9-23); Glucose 94 mg/dL (74-106)
--- NOTE | 2024-10-07 07:38 | ECG ---
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
[2024-10-07 08:00] VITALS: PULSE 81; PULSE 87; RESP 18
--- NOTE | 2024-10-07 08:41 | ECG ---
[facility] Test Date: 2024-10-06 Test Time: 12:18:09 Pat Name: SETH MULLER Department: Room: [address] [place] [address] 2 Gender: F Cloth Feeder: CAROLYN : 1980 Requested By: NETTE ROQUE Order Number: [id number] Reading MD: Partha Khan Measurements Intervals [place] Rate: 78 P: 58 RI: 159 QRS: 23 QRSD: 91 T: 36 QT: 387 QTc: 441 Interpretive Statements Sinus rhythm Electronically Signed On 10-09-2024 13:52:43 PDT by Partha Khan Please click the below link to view image of tracing.
--- NOTE | 2024-10-07 08:58 | DVHPN2 ---
Progress Note - Dictate Date Seen: Oct 07, 2024 Has the PT tested + for MRSA If YES, has PT been informed?: No Medical Necessity Reason Pt with a Central, PICC or Fol: No Subjective is a left-handed female with a history of hypertension, anxiety, TIA, she came to the [facility] on 10/05/24 with a chief complaint of headache, blurry vision, elevated blood pressure. I have seen and examined the patient, I have talked to her nurse, she is doing fine, no new company, blood pressure is much better She told me she already had new insurance UDS, 10/05/2024: Cannabinoids Plasma alcohol, 10/05/2024: <3 Urinalysis, 10/05/2024: WBC: 2, urine leukocyte esterase: Negative WBC/HB/PLT/MCV, 10/05/2024: 4.1/15.1/238/79.9 CMP, 10/05/2024: Unremarkable Lactic acid, 10/05/2024: 2.2, 1:1 TG/HDL/LDL/HDL, 10/06/2024: 98/190/112/66 TSH, 10/05/2024: 1.01, 10/06/2024: 1.51 CT head, 09/29/2024: Normal brain and skull CTA chest, 10/05/24: No evidence of pulmonary embolism. No acute thoracic finding MRI headache, 10/06/2024: No acute or recent infarct. No acute abnormality vital signs Vital Sign Date Time Temp Pulse Resp B/P (MAP) Pulse Ox O2 Delivery O2 Flow Rate FiO2 10/07/24 08:10 125/92 10/07/24 08:05 81 10/07/24 08:00 18 Room Air* 0 21 10/07/24 05:00 97.8 99 97.8 Total Intake and Output 10/06/24 10/06/24 10/07/24 15:00 23:00 07:00 Intake Total 240 ml 680 ml 1600 ml Balance 240 ml 680 ml 1600 ml medications Current Medications Medications Dose Ordered Sig/Joaquin Route Start Time Stop Time Status Last Admin Dose Admin Aspirin 81 mg DAILY PO 10/05/24 14:35 10/07/24 08:14 81 MG Docusate Sodium 100 mg DAILY PO 10/06/24 10:00 Nitroglycerin 0.4 mg Q5MINP PRN SL 10/05/24 14:30 Ondansetron HCl 4 mg Q4HP PRN IV 10/05/24 14:30 Benazepril HCl 5 mg DAILY PO 10/06/24 10:00 10/07/24 08:10 5 MG Atorvastatin Calcium 20 mg HS PO 10/05/24 22:00 10/06/24 20:45 20 MG Lorazepam 1 mg ONCE PRN IV 10/05/24 21:00 10/06/24 08:26 1 MG Lorazepam 0.5 mg Q8HP PRN PO 10/05/24 21:00 10/06/24 00:20 0.5 MG Enoxaparin Sodium 30 mg DAILY SC 10/06/24 10:00 Hydralazine HCl 10 mg Q6HP PRN IV 10/06/24 00:45 10/06/24 01:05 10 MG Metoprolol Tartrate 50 mg BID PO 10/06/24 10:00 10/07/24 08:05 50 MG Acetaminophen 650 mg Q6HP PRN PO 10/06/24 04:15 10/07/24 08:10 650 MG Nifedipine 60 mg DAILY PO 10/06/24 11:00 10/07/24 08:06 60 MG objective General: the patient is well developed and nourished. No acute distress. MENTAL STATUS: Awake and alert. Oriented to person, place, time and general circumstances. Able to give personal history. SPEECH, LANGUAGE, HIGHER CORTICAL FUNCTION: no aphasia or dysathria. CRANIAL NERVES: Pupils are equal, round and reactive. EOMs full and conjugate. No nystagmus. Facial sensation intact in all three divisions bilaterally. Mandibular strength intact. Facial muscles symmetrical and strength intact. SENSATION: Sensation to touch and pinprick is normal. MOTOR: Normal tone in the upper and lower extremity. Normal muscle bulk. No fasciculations. No abnormal movements or posturing. Muscle strength of the major groups in the extremities is 5/5. REFLEXES: Deep tendon reflexes are symmetrical. No pathological reflexes. CEREBELLAR/COORDINATION: Finger to nose is normal bilaterally. 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 for anxiety DVT prophylaxis/Lovenox This medical document was created using an electronic medical record system with etouches Prognosis poor Plan discussed with: Patient, Other Total Time (mins): 35 LINCOLN DEAL MD Oct 07, 2024 08:58
[2024-10-07 09:00] VITALS: BP 130/90; PULSE 86; RESP 19; TEMP 98.4; O2SAT 98
[2024-10-07 13:00] VITALS: BP 153/96; PULSE 71; RESP 18; TEMP 99.1; O2SAT 98
[2024-10-07] MEDS ORDERED: NIFE1TAB31 PO (13:41)
[2024-10-07] MEDS ORDERED: ATOR20TA50 PO (13:41)
[2024-10-07] MEDS ORDERED: MET50T PO (13:41)
[2024-10-07] MEDS ORDERED: BENA10TA90 PO (13:41)
[2024-10-07] MEDS ORDERED: ASPI-325 PO (13:41)
[2024-10-07 14:07] VITALS: BP 134/89; PULSE 71; RESP 18; TEMP 98.1; O2SAT 98
--- NOTE | 2024-10-07 14:27 | DVHDSRES ---
Discharge Summary Date of Admission Resident Creating Document: LUIS PRIETO RESIDENT Oct 05, 2024 at 14:26 Date of Discharge: Oct 07, 2024 Admitting Diagnosis Headache Wounds: No wounds Labs/Diagnostic Data: Laboratory Results Test 10/07/24 06:05 10/06/24 05:00 10/05/24 15:22 10/05/24 14:04 White Blood Count 4.1 10^3/uL (4.4-10.8) Red Blood Count 5.56 10^6/uL (4.0-5.20) Hemoglobin 15.0 g/dL (12.2-16.2) Hematocrit 44.5 % (36.0-46.0) Mean Corpuscular Volume 80.0 fL (80.0-100.0) Mean Corpuscular Hemoglobin 27.1 pg (28.0-32.0) Mean Corpuscular Hemoglobin Concent 33.8 g/dL (32.0-36.0) Red Cell Distribution Width 13.6 % (11.8-14.3) Platelet Count 306 10^3/uL (140-450) Mean Platelet Volume 8.3 fL (6.9-10.8) Neutrophils (%) (Auto) 35.9 % (37.0-80.0) Lymphocytes (%) (Auto) 49.3 % (10.0-50.0) Monocytes (%) (Auto) 10.2 % (0.0-12.0) Eosinophils (%) (Auto) 3.8 % (0.0-7.0) Basophils (%) (Auto) 0.8 % (0.0-2.0) Neutrophils # (Auto) 1.5 10 ^3/uL (1.6-8.6) Lymphocytes # (Auto) 2.0 10 ^3/uL (0.4-5.4) Monocytes # (Auto) 0.4 10 ^3/uL (0-1.3) Eosinophils # (Auto) 0.2 10 ^3/uL (0-0.8) Basophils # (Auto) 0 10 ^3/uL (0-0.2) Nucleated Red Blood Cells 0.4 % Sodium Level 139 mmol/L (136-145) Potassium Level 4.1 mmol/L (3.5-5.1) Chloride Level 105 mmol/L (98-107) Carbon Dioxide Level 25 mmol/L (20-31) Anion Gap 9 (5-15) Blood Urea Nitrogen 13 mg/dL (9-23) Creatinine 0.95 mg/dL (0.550-1.02) Glomerular Filtration Rate Calc 76 mL/min (>90) BUN/Creatinine Ratio 13.7 (10.0-20.0) Serum Glucose 94 mg/dL (74-106) Calcium Level 9.9 mg/dL (8.7-10.4) Total Bilirubin 1.0 mg/dL (0.2-1.0) Aspartate Amino Transferase (AST) 16 U/L (13-40) Alanine Aminotransferase (ALT) 12 U/L (7-40) Alkaline Phosphatase 53 U/L (46-116) Troponin I High Sensitivity 3 ng/L (</=34) Total Protein 7.0 g/dL (5.7-8.2) Albumin 4.1 g/dL (3.2-4.8) Triglycerides Level 98 mg/dL (< 150) Cholesterol Level 190 mg/dL (< 200) LDL Cholesterol 112 mg/dL (< 100) HDL Cholesterol 66 mg/dL (40-59) Thyroid Stimulating Hormone (TSH) 1.51 uIU/mL (0.55-4.78) Prothrombin Time 11.4 sec (9.3-11.8) Prothrombin Time INR 1.08 (0.9-1.15) D-Dimer, Quantitative 0.69 mg/L FEU (0.0-0.49) Lactic Acid Level 1.1 mmol/L (0.4-2.0) Urine Color Light-yellow (Yellow) Urine Clarity Clear (Clear) Urine pH 7.0 (5.0-9.0) Urine Specific Viola 1.006 (1.001-1.035) Urine Protein Negative (Negative) Urine Ketones Negative (Negative) Urine Blood Negative /uL (Negative) Urine Nitrite Negative (Negative) Urine Bilirubin Negative (Negative) Urine Urobilinogen Normal mg/dL (Negative) Urine Leukocyte Esterase Negative /uL (Negative) Urine RBC 1 /hpf (0 - 4) Urine Microscopic WBC 2 /HPF (0-5) Urine Squamous Epithelial Cells Few /hpf (<5) Urine Bacteria Few /hpf (None Seen) Urine Glucose Normal mg/dL (Normal) Urine Test Negative (Negative) Urine Opiates Screen Neg (NEGATIVE) Urine Fentanyl Screen Neg (NEGATIVE) Urine Barbiturates Screen Neg (NEGATIVE) Urine Phencyclidine Screen Neg (NEGATIVE) Urine Amphetamines Screen Neg (NEGATIVE) Urine Benzodiazepines Screen Neg (NEGATIVE) Urine Cocaine Screen Neg (NEGATIVE) Urine Cannabinoids Screen Pos (NEGATIVE) Test 10/05/24 12:37 Magnesium Level 1.9 mg/dL (1.6-2.6) B-Type Natriuretic Peptide 5.13 pg/mL (0-100) Plasma/Serum Blood Alcohol < 3.0 mg/dL (<10) Other Laboratory Tests 10/07/24 06:05 Brief Hx & Hospital Course: Patient is a 44-year-old female with past medical history of hypertension since 1995, an unspecified heart issue in 2011, anxiety, and 2 TIAs in 2016, who presented to the ED with chief complaint of headache and high blood pressure. She states she awoke yesterday with a generalized pulsating headache, intensity 9/10, for which she took an aspirin with no relief. She states this was associated with blurry vision, tinnitus, nausea, and labored breathing. Patient states that she is currently between insurances and has not been taking her blood pressure medications (benzapril, amlodipine, and losartan), but has been monitoring her BP at home with average reading of 157/75 mmHg. She checked her blood pressure at home and states it was 180/100, which prompted her to seek medical care. She denied vomiting, palpitations, chest pain, arm pain, or any other symptoms. On evaluation in the ED, she was tachycardic and her blood pressure was 172/122, for which she was started on IV metoprolol. Initial labs showed WBCs 4.1, Hb 15.1, HCT 46.1, PLT 238, Sodium 139, Potassium 3.5, Creatine 0.99, lactic acid 2.2, and troponins negative. UDS positive for cannabis Chest Xray shows no acute signs of cardiopulmonary disease. Head CT shows normal brain and skull. She was admitted for further work up and monitoring. Due to history of TIA, Brain MRI was ordered which no acute or recent infarct. She was started on her home medications for continued antihypertensive control. Due to suspicion of possible PE, CT angiogram was ordered which showed no evidence of pulmonary embolism and no acute thoracic finding. Due her age at diagnosis and family history, further work up with an echocardiogram was ordered. This showed concentric LVH, EF of 50% with normal RV function. Renal artery duplex showed no definitive evidence of renal artery stenosis. She continued to have intermittent headaches, which were controlled with acetaminophen. Patient was seen by cardiology who recommend continuation of medication, and that there is no immediate need for further caridiac workup, recommend with outpatient follow up. She was also seen by neurology who recommended continued supportive treatment. On evaluation today, patient states that she feels well. Currently denies headache, blurry vision, tinnitus, chest pain, or other symptoms. Her blood pressure has normalized and remained stable. Follow up labs are within normal range. She is considered stable for discharge home with blood pressure medications. She has been given a follow up in the discharge clinic for continued monitoring and as well as establishment of care with a PCP. All questions have been answered, and all medications and recommendations have been explained. She states she understands and agrees. Physical Exam: General: Patient is comfortable, alert and oriented in person place and time. Patient following commands HEENT: Normocephalic, atraumatic, normoreactive pupils, excessive blinking, EOM intact, pink conjunctiva, moist mucous membrane Respiratory/pulmonary: Clear lungs bilaterally, vesicular murmurs present in almost all lung pratt, no associated crackles or wheezes. Cardiovascular: Normal RRR, normal S1 and S2, no accessory sounds Abdomen: Vertical linear hypopigmented striae covering inferior abdomen, Abdomen nondistended, Normal bowel sounds, tympanic to percussion, soft, no pain to palpation in any of the abdominal quadrants, no palpable masses. Extremities: No deformities, there is no peripheral edema present at the lower extremities, normal pulses. Skin: No rashes or pruritus Neurological: Intact cranial nerves with no focal neurologic deficits Consults/Reason for consult Cardiology consult was placed due to chest pain and family history. Neurology consult was placed due to history of TIA Operations or Procedures AP portable chest CLINICAL INDICATION: TACHY, HTN FINDINGS: Heart size is normal. No infiltrates or effusions. No bony thoracic abnormalities. IMPRESSION: 1. No acute cardiopulmonary pathology. CT brain without contrast CLINICAL INDICATION: acute headache FINDINGS: The study was performed in a multidetector scanner. This study performed taking axial images from the skull base up to the vertex. Both brain and bone windows are photographed. Dose lowering techniques have been used including automated exposure control and adjustment of mA and/or KV according to patient size. Normal and symmetrical shape and density of brain parenchyma above and below the tentorium is seen. There is no mass, midline shift or hydrocephalus. No intra/extra-axial collections demonstrated. There is no intracranial hemorrhage. The calvarium is intact. IMPRESSION: 1. Normal brain and skull. CTA Chest with intravenous contrast INDICATION: eval for pe COMPARISON: None TECHNIQUE: Multidetector spiral CTA of the chest was performed of the chest with intravenous contrast. PULMONARY ANGIOGRAPHY PROTOCOL was utilized using a bolus- tracking technique centered on the main pulmonary artery. Axial, coronal and sagittal multiplanar and MIP reformats were performed. Radiation Dose : 1. Chest: CTDI volume is 11.84 mGy. Dose-length product is 191.33 mGy*cm The dose indicators for CT are the volume Computed Tomography (CT) Dose Index (CTDIvol) and the Dose Length Product (DLP), and are measured in units of mGy and mGy-cm, respectively. These indicators are not patient dose, but values generated from the CT scanner acquisition factors. The report includes radiation exposure data for exposures received during this examination. Findings: Pulmonary artery: No evidence of pulmonary embolism. Lower neck: Unremarkable. Lungs: No abnormality demonstrated. Pleura: No pleural effusion or pneumothorax. Heart: Normal heart size. No pericardial effusion. Thoracic aorta: No abnormality demonstrated. Mediastinum / Lymph Nodes: No abnormality demonstrated. Musculoskeletal: No abnormality demonstrated. Soft tissues: Unremarkable. Upper abdomen: Unremarkable. IMPRESSION: No evidence of pulmonary embolism. No acute thoracic finding. RENAL DUPLEX ULTRASOUND CLINICAL HISTORY: Possible secondary HTN COMPARISON: None TECHNIQUE: Multiplanar ultrasound examination of the kidneys, abdominal aorta, and bilateral renal arteries was performed. FINDINGS: Limited evaluation with poor visualization of the bilateral arteries. The right kidney measures 10.8 cm. No renal calculus. No hydronephrosis.. No solid renal masses. The left kidney measures 10.2 cm. No renal calculus. No hydronephrosis.. No solid renal masses. The echogenicity of the kidneys is within normal limits. Normal flow velocities in the poorly visualized bilateral renal arteries without evidence of stenosis or occlusion. The intraparenchymal renal vessels bilaterally are not well evaluated due to large flow velocity scale. The abdominal aorta measures 1.6 cm. Peak systolic velocity at the abdominal aorta is 119 cm/s IMPRESSION: Limited evaluation with poor visualization/evaluation of the bilateral renal arteries. No definite evidence of renal artery stenosis. If there is clinical concern, consider further evaluation CT angiogram abdomen. EXAM: MRI BRAIN HEAD WO CONTRAST HISTORY: PRES TECHNIQUE: Multiplanar and multisequence MR imaging of the head was performed. COMPARISON: CT head from 10/05/2024 FINDINGS: The ventricles and subarachnoid spaces are normal in size and configuration. Brain parenchyma is normal in signal. There is no midline shift or mass effect. The vascular flow-voids are unremarkable. Diffusion weighted imaging is not indicative of acute or recent infarct. Left mastoid air cell effusion. Mild mucosal thickening of the paranasal sinuses greatest in the bilateral maxillary sinuses. IMPRESSION: No acute or recent infarct. No acute abnormality. EXAM: Two-dimensional and M-mode echocardiogram with Doppler and color Doppler. Blood Pressure: 134/92 mmHg INDICATION Chest Pain RISK FACTORS Height: 63, Weight: 144 DIMENSIONS LVDd 3.9 (3.8-5.7cm) LA (2D) 3.7 (1.9-4.0cm) Aortic Root 3.2 (2.0- 3.7cm) LVDs 2.7 (2.5-4.0cm) LA (MM) (1.9-4.0cm) Aortic Cusp Exc 1.6 (1.5- 2.0cm) EF (%) 60.0 (55-70%) Rt. Atrium 3.5 (1.9-4.0cm) Asc. Aorta cm IVSd 1.4 (0.7-1.1cm) RV (D) (1.8-2.4cm) PWd 1.4 (0.7-1.1cm) Mitral Valve Mitral Mitral Stenosis E wave 0.66m/s MV Mean GR. mmHg A wave 0.91m/s MV Peak GR. mmHg E/A ratio 0.7 2D MVA cm2 DECEL Time 127ms PRESS 1/2 Time 44ms IVRT ms Dop MVA 5.05cm2 Aortic Valve Aortic Valve Aortic Stenosis V1 0.93m/s AO Mean GR. 4mmHg V2 1.29m/s AO Peak GR. 7mmHg LVOT Diameter 2.0 (1.8-2.4cm) Doppler YOLANDA 2.26cm2 Pulmonic Valve V2 1.09m/s Other Information Technically limited study due to body habitus. Conclusion Sinus rhythm. Concentric LVH. Valves are normal. EF of 50% with normal RV function. Doppler reveals no significant regurgitant jets. No pericardial effusion masses or vegetations. Condition at Discharge: Stable Final Diagnosis/Problems List Hypertensive Urgency Lactic acidosis, possibly due to above Hypertension, likely essential Headache, secondary to above Acute TIA, ruled out PE, ruled out History of Anxiety History of TIA Cannabis use Discharge Disposition: Home Discharge Instruct/Medications Diet: Cardiac 2g Na,low cholest Activity: No Restrictions, As Tolerated Follow Up/Referral: Follow up in discharge clinic in 1 week Medications: Aspirin 81 mg PO daily Atorvastatin 20 mg PO daily Benazepril 10 mg Tablet, 5 mg PO daily Metoprolol tartate 5 mg PO twice daily Nifedipine 30 mg PO daily Scheduled Aspirin (Alejandra Aspirin Ec Low Dose), 1 TAB PO DAILY, (Reported) Aspirin (Aspirin Low Dose), 81 MG PO DAILY Atorvastatin Calcium (Atorvastatin Calcium), 20 MG PO HS Benazepril Hcl (Benazepril Hcl), 5 MG PO DAILY Metoprolol Tartrate (Lopressor Tablet), 50 MG PO BID Nifedipine (Nifedipine Er), 30 MG PO DAILY Discharge Statement: "Patient was advised to return to the ER or call 911 if any headaches, dizziness, shortness of breath, chest pain, abdominal pain, bleeding, fevers, or worsening of medical condition. Patient was counseled about treatment plan, medications, possible side effects, patientverbalized understanding. All questions were answered to the best of my ability. This discharge took greater then 30 minutes in planning, reviewing documentation, counseling the patient, and discussing with other team members." ASSESSMENT ASSESSMENT Assessment Hypertensive Emergency Date of Service: Oct 07, 2024 Billing Provider: REBECA PANDA MD Common Visit Codes: 52408-RXA/OBS DISCH DAY >30min LUIS PRIETO RESIDENT Oct 07, 2024 14:27 REBECA PANDA MD Oct 08, 2024 21:37
== END 2024-10-07 15:05 | disposition home or self-care (01) | DRG 199 ==
LOC: EDBD 11:51 → ER 11:51 → OVERFLOW 14:26 → TELE-EAST 22:55
PROVIDERS: ADMIT Internal Medicine Geriatric Medicine; ATTEND Internal Medicine Geriatric Medicine
DX: I16.0 Hypertensive urgency (principal); I67.83 Posterior reversible encephalopathy syndrome; E87.20 Acidosis, unspecified; R65.10 Systemic inflammatory response syndrome (SIRS) of non-infectious origin without acute organ dysfunction; E78.5 Hyperlipidemia, unspecified; F41.9 Anxiety disorder, unspecified; H93.11 Tinnitus, right ear; Z79.899 Other long term (current) drug therapy; Z86.73 Personal history of transient ischemic attack (TIA), and cerebral infarction without residual deficits; Z98.891 History of uterine scar from previous surgery; Z91.148 Patient's other noncompliance with medication regimen for other reason; Z88.0 Allergy status to penicillin; Z82.49 Family history of ischemic heart disease and other diseases of the circulatory system; Z83.3 Family history of diabetes mellitus
CPT/HCPCS: 36415; 70450; 70551; 71045; 71275; 80048; 80053; 80061; 80307; 80320; 81001; 81025; 83605; 83735; 83880; 84443; 84484; 85025; 85379; 85610; 93005; 93306; 93975; 96361; 96374; 99291; G0378